=== PATIENT | female | born 1960 ===

== ENCOUNTER 2017-12-10 08:15 | Outpatient (CLI) | payer OTHER ==
[~2017-12-10] VITALS: Ht 152.4 cm; Wt 85.7 kg
== END 2017-12-10 08:30 | disposition home or self-care (01) ==
LOC: OFIC 805 08:15
DX: H70.13 Chronic mastoiditis, bilateral (principal); H90.6 Mixed conductive and sensorineural hearing loss, bilateral; J31.0 Chronic rhinitis

== ENCOUNTER 2018-04-29 08:31 | Outpatient (CLI) | payer OTHER ==
[~2018-04-29] VITALS: Ht 152.4 cm; Wt 85.7 kg
== END 2018-04-29 08:45 | disposition home or self-care (01) ==
LOC: OFIC 805 08:31
DX: H90.6 Mixed conductive and sensorineural hearing loss, bilateral (principal); H70.13 Chronic mastoiditis, bilateral